=== PATIENT | male | born 1965 | race Caucasian/White ===

== ENCOUNTER 2020-11-24 16:36 | Emergency (ER) | payer MEDICAID ==
[~2020-11-24] VITALS: Ht 167.6 cm; Wt 112.5 kg
[2020-11-24 16:40] VITALS: BP_SYST 162
[2020-11-24] MEDS ORDERED: ACETAMINOPHEN 500 MG TABLET PO ONE (17:30)
[2020-11-24] MEDS ORDERED: KETOROLAC TROMETHAMINE 60 MG/2 ML VIAL IM ONE (18:00)
[2020-11-24] MEDS ORDERED: NAPR-1172 PO (18:00)
[2020-11-24 18:36] VITALS: BP_SYST 136
== END 2020-11-24 18:36 | disposition home or self-care (01) ==
LOC: SED 16:36
DX: M25.561 Pain in right knee (principal); Z79.899 Other long term (current) drug therapy
CPT/HCPCS: 99282

== ENCOUNTER 2021-06-16 04:26 | Emergency (ER) | payer MEDICAID ==
[~2021-06-16 04:26] MED LIST: NAPR-1172 PO
[2021-06-16 04:47] VITALS: BP_SYST 125
--- NOTE | 2021-06-16 04:47 | NUR ---
Patient to ER bed 8 to gown for evaluation. Side rails up.
--- NOTE | 2021-06-16 04:48 | NUR ---
ER at bedside examining patient.
[2021-06-16] MEDS ORDERED: ONDANSETRON 4 MG ODT TAB PO ONE (05:00)
--- NOTE | 2021-06-16 05:05 | NUR ---
PATIENT AAOX4 AND AMBULATORY FROM HOME C/O NAUSEA AND VOMITING X 10 SINCE YESTERDAY. PT STATED HE FEELS DIZZY AND WEAK. HAS BEEN DRINKING WATER AND PEDIALYTE WITH NO RELIEF. PT STATED HE HAD A NEAR SYNCOPE EPISODE. HE FELT IF THE ROOM WAS SPINNING AND SAW BLACK. VSS. DENIES ANY SOB OR CP. NO ACUTE DISTRESS NOTED.
--- NOTE | 2021-06-16 05:21 | NUR ---
PATIENT ESCORTED BACK FROM CT BY RADIOLOGY STAFF AND FAMILY.
--- NOTE | 2021-06-16 05:40 | NUR ---
# 20 gauge angiocath placed to RIGHT HAND. Use of asceptic technique. Opsite placed over site. Blood return noted. Blood for lab drawn from site. Flushed with 10 cc of normal saline. No evidence of infiltration noted. Patient tolerated well.
[2021-06-16] MEDS ORDERED: MECLIZINE HCL 25 MG TABLET (ANITVERT) PO ONE (05:45)
[2021-06-16] MEDS ORDERED: METOCLOPRAMIDE HCL 10 MG/2 ML VIAL IVP ONE (06:00)
[2021-06-16] MEDS ORDERED: KETOROLAC TROMETHAMINE 30 MG VIAL IVP ONE (06:00)
[2021-06-16] MEDS ORDERED: DIPHENHYDRAMINE INJ 50 MG/ML VIAL IVP ONE (06:00)
[2021-06-16 06:05] LABS: BASOPHILS % (AUTO) 0.3 % (0.0-2.0); EOSINOPHILS % (AUTO) 0.3 % (0.0-4.0); HEMOGLOBIN 15.3 g/dL (14.0-18.0); LYMPHOCYTES # (AUTO) 0.5 K/uL (1.0-5.5); LYMPHOCYTES % (AUTO) 4.4 % (20.5-51.5); MEAN CORPUSCULAR HEMOGLOBIN 30 pg (27-31); MEAN CORPUSCULAR HGB CONC 33 % (32-36); MEAN CORPUSCULAR VOLUME 89 fL (79.0-98.0); MONOCYTES # (AUTO) 0.7 K/uL (0.0-1.0); MONOCYTES % (AUTO) 5.7 % (1.7-9.3); NEUTROPHILS # (AUTO) 10.4 K/uL (1.8-7.7); NEUTROPHILS % (AUTO) 89.3 % (40.0-70.0); PLATELET COUNT (AUTO) 220 K/uL (130-430); RED BLOOD CELL COUNT(AUTO) 5.15 MIL/uL (4.2-6.2); WHITE BLOOD COUNT (AUTO) 11.6 K/uL (4.8-10.8)
[2021-06-16 06:06] LABS: BILIRUBIN,URINE NEGATIVE (NEGATIVE); BLOOD, URINE NEGATIVE (NEGATIVE); CLARITY/URINE CLEAR (CLEAR); COLOR,URINE YELLOW (YELLOW); GLUCOSE,URINE NEGATIVE (NEGATIVE); KETONES,URINE NEGATIVE (NEGATIVE); LEUKOCYTE ESTERASE ,URINE NEGATIVE (NEGATIVE); NITRITE, URINE NEGATIVE (NEGATIVE); PROTEIN URINE 3+ (NEGATIVE); UROBILINOGEN,URINE 0.2 (0.2-1.0)
[2021-06-16 06:24] LABS: ANION GAP 9 (5-15); BARBITURATE, URINE NEGATIVE (NEG <=200); BENZODIAZEPINE, URINE NEGATIVE (NEG <=150); CALCIUM 8.4 mg/dL (8.4-11.0); CANNABINOID, URINE NEGATIVE (NEG <=50); CHLORIDE 100 mmol/L (98-107); COCAINE, URINE NEGATIVE (NEG <=150); CREATININE 0.99 mg/dL (0.55-1.30); GLUCOSE 199 mg/dL (70-99); INR 0.9 (0.80-1.20); METHAMPHETAMINES SCREEN,URINE NEGATIVE (NEG <=500); OPIATE, URINE NEGATIVE (NEG <=100); PHENCYCLIDINE SCREEN,URINE NEGATIVE (NEG <=25); POTASSIUM 3.6 mmol/L (3.5-5.1); PROTHROMBIN TIME 9.9 SECS (9.5-12.5); SODIUM SERUM 140 mmol/L (136-145); UR TRICYCLIC ANTIDEPRESSANTS NEGATIVE (NEG <=300); UREA NITROGEN, BLOOD 22 mg/dL (8-21); URINE AMPHETAMINE NEGATIVE (NEG <=500); URINE METHADONE NEGATIVE (NEG <=200); URINE OXYCODONE SCREEN NEGATIVE (NEG <=100); URINE PROPOXYPHENE SCREEN NEGATIVE (NEG <=300)
[2021-06-16 06:29] LABS: ALANINE AMINOTRANSFERASE 28 U/L (12-78); ALBUMIN 3.8 g/dL (3.4-4.8); ASPARTATE AMINOTRANSFERASE 15 U/L (10-37); TOTAL BILIRUBIN 0.5 mg/dL (0.0-1.0)
[2021-06-16 06:30] LABS: ALCOHOL, BLOOD < 3 mg/dL (<10); GFR AFRICAN AMERICAN 101 mL/min (>90)
--- NOTE | 2021-06-16 06:33 | NUR ---
PT RESTING AND MEDICATED. AT BEDSIDE. AWAITING CT RESULTS FOR DISPOSITION.
[2021-06-16] MEDS ORDERED: MECL-109 PO (06:43)
[2021-06-16 06:57] VITALS: BP_SYST 115
--- NOTE | 2021-06-16 06:58 | NUR ---
Patient given written and verbal discharge instructions and verbalizes understanding. DR.DIAZ QUIRINO RAMSEY discussed with patient the results and treatment provided. Patient in stable condition. ID arm band removed. IV catheter removed intact and dressing applied, no active bleeding. Rx of MECLIZINE given. Patient educated on pain management and to follow up with PMD. Pain Scale 0/10. Opportunity for questions provided and answered. Medication side effect fact sheet provided.
[2021-06-16 07:12] LABS: BACTERIA,URINE FEW /HPF (None Seen); RBC,URINE 0-3 /HPF (0-3); WBC,URINE 0-3 /HPF (0-3)
== END 2021-06-16 06:57 | disposition home or self-care (01) ==
LOC: SED 04:26
DX: H81.10 Benign paroxysmal vertigo, unspecified ear (principal); Z79.899 Other long term (current) drug therapy
CPT/HCPCS: 36415; 70450; 76376; 80053; 80307; 81000; 83605; 84484; 85025; 85610; 85730; 93005; 96374; 96375; 99285; G0482; J1200; J1885; J2765; J8597; Q0162

== ENCOUNTER 2021-12-20 19:56 | Emergency (ER) | payer MEDICAID ==
[~2021-12-20] VITALS: Ht 167.6 cm; Wt 108.9 kg
[~2021-12-20 19:56] MED LIST changes: +MECL-109 PO
[2021-12-20 20:05] VITALS: BP_SYST 183
[2021-12-20 21:42] VITALS: BP_SYST 145
== END 2021-12-20 21:40 | disposition home or self-care (01) ==
LOC: SED 19:56
DX: S50.01XA Contusion of right elbow, initial encounter (principal); I10 Essential (primary) hypertension; W22.01XA Walked into wall, initial encounter; Y93.89 Activity, other specified; Y92.89 Other specified places as the place of occurrence of the external cause; Y99.8 Other external cause status
CPT/HCPCS: 99283

== ENCOUNTER 2023-06-12 17:12 | Emergency (ER) | payer MEDICAID ==
[~2023-06-12] VITALS: Ht 167.6 cm; Wt 108.9 kg
[~2023-06-12 17:12] MED LIST changes: +CYCL10TA24 PO; +IBUP-1969 PO; +LIDO1ADH71 TD
[2023-06-12 17:37] VITALS: BP_SYST 125; PULSE 78; RESP 18; TEMP 97.8; O2SAT 96
[2023-06-12] MEDS ORDERED: DIPHTH,PERTUSS(ACELL),TET VAC 0.5 ML VIAL (Tdap) I.M. ONE (18:00)
[2023-06-12 18:21] LABS: BASOPHILS % (AUTO) 0.5 % (0.0-2.0); EOSINOPHILS # (AUTO) 0.2 K/uL (0.0-0.4); EOSINOPHILS % (AUTO) 2.4 % (0.0-4.0); HEMATOCRIT 43.4 % (36-54); HEMOGLOBIN 14.3 g/dL (14.0-18.0); LYMPHOCYTES # (AUTO) 2.5 K/uL (1.0-5.5); MEAN CORPUSCULAR HEMOGLOBIN 30 pg (27-31); MEAN CORPUSCULAR HGB CONC 33 % (32-36); MEAN CORPUSCULAR VOLUME 90 fL (79.0-98.0); MONOCYTES # (AUTO) 0.7 K/uL (0.0-1.0); MONOCYTES % (AUTO) 9.7 % (1.7-9.3); NEUTROPHILS # (AUTO) 4.1 K/uL (1.8-7.7); NEUTROPHILS % (AUTO) 54.4 % (40.0-70.0); PLATELET COUNT (AUTO) 243 K/uL (130-430); RED BLOOD CELL COUNT(AUTO) 4.82 MIL/uL (4.2-6.2); RED CELL DISTRIBUTION WIDTH 14.4 % (9.0-15.0); WHITE BLOOD COUNT (AUTO) 7.5 K/uL (4.8-10.8)
[2023-06-12 18:33] LABS: PROTHROMBIN TIME 9.9 SECS (9.5-12.5)
[2023-06-12 18:36] LABS: ALBUMIN 3.5 g/dL (3.4-4.8); CALCIUM 9.1 mg/dL (8.4-11.0); CREATININE 0.87 mg/dL (0.55-1.30); POTASSIUM 3.7 mmol/L (3.5-5.1); TOTAL BILIRUBIN 0.2 mg/dL (0.0-1.0); TOTAL PROTEIN, SERUM 7.1 g/dL (6.4-8.3)
[2023-06-12 18:47] LABS: BILIRUBIN,DIRECT 0.1 mg/dL (0.0-0.3)
[2023-06-12] MEDS ORDERED: NEOM28.37 TP (19:04)
[2023-06-12] MEDS ORDERED: CLIN-22 PO (19:04)
[2023-06-12 19:19] VITALS: BP_SYST 125; PULSE 78; RESP 18; TEMP 97.8; O2SAT 96
== END 2023-06-12 19:19 | disposition home or self-care (01) ==
LOC: SED 17:12
DX: S81.812A Laceration without foreign body, left lower leg, initial encounter (principal); S80.812A Abrasion, left lower leg, initial encounter; I10 Essential (primary) hypertension; E11.9 Type 2 diabetes mellitus without complications; Z79.899 Other long term (current) drug therapy; W50.4XXA Accidental scratch by another person, initial encounter; Y93.89 Activity, other specified; Y92.89 Other specified places as the place of occurrence of the external cause; Y99.8 Other external cause status
CPT/HCPCS: 36415; 73590-TC; 80048; 80076; 83605; 85025; 85610-TC; 85730-TC; 90715; 99284